=== PATIENT | female | born 1960 | race Caucasian/White ===

== ENCOUNTER → 2017-02-12 | Outpatient (CLI) | payer OTHER ==
--- NOTE | 2017-02-12 14:34 | XCELERA REPORT ---
[address] [address] Lower Extremity Arterial Evaluation Name: JORY DRUMMOND Age: 56 yrs Gender: Female : 1960 Patient Status: Outpatient Patient Location: Study Date: 02/12/2017 01:08 PM Procedure: A color flow and duplex scan of the lower extremity arteries was performed bilaterally with velocity and waveform anaylsis. Ankle brachial indicies performed. Reason For Study: L97.212 Ordering Physician: MACK KWON Performed By: Blaire Cm Measurements and Calculations Right Left [employer] SPECIALIST PSV 175.2 170.3 cm/sec Prox PFA PSV 99.9 74.8 cm/sec Prox SFA PSV 182.0 182.5 cm/sec Mid SFA PSV -110.6 -135.1 cm/sec Dist SFA PSV -93.7 -146.5 cm/sec Prox Pop A PSV 92.4 83.6 cm/sec Dist NICKI PSV 68.5 86.7 cm/sec Dist PREDATORY GAME HUNTER PSV 92.4 93.0 cm/sec Iam Pedis PSV -102.0 91.8 cm/sec Right Side Arterial Evaluation Normal velocity and triphasic waveforms noted from the Common Femoral artery to the Popliteal.. Biphasic with good waveform to the infrageniculate level. . 0-19% stenosis at the infrageniculate level. Ankle Brachial index is 1.00. Left Side Arterial Evaluation Normal velocity and triphasic waveforms noted from the Common Femoral artery to the Popliteal.. Biphasic with good waveform to the infrageniculate level. . 0-19% stenosis at the infrageniculate level. Ankle Brachial index is 1.21. Interpretation Summary Mild hemodynamically significant lesions in the bilateral lower extremities, on duplex imaging, at rest. : MACK KWON > Mack Kwon
--- NOTE | 2017-02-13 13:44 | XCELERA REPORT ---
[address] [address] Lower Extremity Venous Evaluation Name: JORY DRUMMOND Age: 56 yrs Gender: Female : 1960 Patient Status: Outpatient Patient Location: Study Date: 02/12/2017 01:52 PM Procedure: A bilateral duplex scan of the lower extremity veins was performed. The evaluation included responses to compression and other maneuvers with patient in the supine and standing positions to assess venous insufficiency. Reason For Study: L97.212 Ordering Physician: MACK KWON Performed By: Matt Silva Right Sided Venous Evaluation Deep venous system evaluatiion shows patent veins with no obstruction or significant reflux identified. Sapheno Femoral junction: 1.4 second reflux. Femoral vein reflux: no reflux. Greater Saphenous vein, Proximal thigh: reflux: no reflux. Greater Saphenous vein, Distal thigh: reflux: no reflux. Greater Saphenous vein, Proximal below knee: reflux: no reflux. Greater Saphenous vein, Mid below knee: reflux: 4.4 reflux. 6 mm diameter. Greater Saphenous vein, distal below knee: reflux: 4.5 reflux. 7 mm diameter. No significant Perforators identified. Left Sided Venous Evaluation Deep venous system evaluation shows patent veins with significant reflux identified. 1.4 second reflux in the CFV, no reflux in the Femoral vein. Sapheno Femoral junction: no reflux. Greater Saphenous vein, Proximal thigh: reflux: no reflux. Greater Saphenous vein, mid thigh: reflux: no reflux. Greater Saphenous vein, Distal thigh: reflux:no reflux. Greater Saphenous vein, Proximal below knee: reflux: none Greater Saphenous vein, Mid below knee: reflux: none. Greater Saphenous vein, Distal below knee: reflux: 4.2 seconds, 4 mm diameter. No significant Perforators identified. Interpretation Summary No duplex evidence of DVT or obstruction in the bilateral lower extremities. Limited refllux as noted. : MACK KWON > Mack Kwon
== END ==
LOC: SP 11:49
PROVIDERS: ATTEND Surgery
DX: L97.212 Non-pressure chronic ulcer of right calf with fat layer exposed (principal)
CPT/HCPCS: 93925; 93970

== ENCOUNTER 2017-09-18 21:41 | Emergency (ER) | payer OTHER ==
[2017-09-18] MEDS ORDERED: ATROPINE SULFATE INJ 1 MG/1 ML VIAL IV ONE ×2 (21:58→23:18)
[2017-09-18] MEDS ORDERED: CALCIUM GLUCONATE 1000 MG/10 ML INJ IV ONE ×2 (22:01→23:00)
[2017-09-18] MEDS ORDERED: DEXTROSE 50%-WATER 25 GM/50 ML DISP.SYRIN IV ONE (22:02)
[2017-09-18] MEDS ORDERED: INSULIN REG, HUMAN 100 UNIT/ML 3 ML VIAL (PYX) IV ONE (22:02)
--- NOTE | 2017-09-18 22:37 | ER Document Report ---
ED General - General Mode of Arrival: Medic Information source: Patient, Relative TRAVEL OUTSIDE OF THE [place] IN LAST 30 DAYS: No - HPI Patient complains to provider of: Weakness Onset: Other - few days ago Associated symptoms: Other - see notes above <ENRRIQUE SPARKS - Last Filed: 09/19/17 02:27> <MYLENE BARBA - Last Filed: 09/19/17 04:19> - General Chief Complaint: General Weakness Stated Complaint: WEAKNESS Time Seen by Provider: 09/18/17 21:58 Notes: 57-year-old female with history of hyperlipidemia, COPD, and diabetes presents to the ED via EMS complaining of is worsening weakness over the past several days. Family reports that the patient has a history of an elevated potassium with unknown value. She is family saw that the patient was getting worse this evening and decided to come in. Patient denies any chest pain. EMS reports the patient was bradycardic and hypotensive. Gastroenterology Teacher: Dr. Smith (Edwards) Pneumologist: Dr. Barr (ENRRIQUE SPARKS) - Related Data Allergies/Adverse Reactions: chlorzoxazone [From Parafon Forte] Allergy (Verified 08/04/12 13:33) medroxyprogesterone acetate [From Provera] Allergy (Verified 08/04/12 13:33) Past Medical History - General Information source: Patient, Emergency Med Personnel - Social History Smoking Status: Unknown if Ever Smoked Family History: Reviewed & Not Pertinent - Past Medical History Cardiac Medical History: Reports: Hx Hypercholesterolemia Pulmonary Medical History: Reports: Hx COPD - ON 2 LITER CONTINUEOUS OXYGEN Endocrine Medical History: Reports: Hx Diabetes Mellitus Type 2, Hx Hypothyroidism <ENRRIQUE SPARKS - Last Filed: 09/19/17 02:27> Review of Systems - Review of Systems Constitutional: See HPI, Weakness EENT: No symptoms reported Cardiovascular: No symptoms reported. denies: Chest pain Respiratory: No symptoms reported Gastrointestinal: No symptoms reported Genitourinary: No symptoms reported Female Genitourinary: No symptoms reported Musculoskeletal: No symptoms reported Skin: No symptoms reported Hematologic/Lymphatic: No symptoms reported Neurological/Psychological: No symptoms reported -: Yes All other systems reviewed and negative <ENRRIQUE SPARKS - Last Filed: 09/19/17 02:27> Physical Exam - Vital signs Interpretation: Hypotensive, Bradycardic, Hypoxic, Tachypneic - General General appearance: Alert, Other - confused In distress: Severe - HEENT Head: Normocephalic, Atraumatic Eyes: Normal Extraocular movements intact: Yes Pupils: PERRL - Respiratory Respiratory status: Tachypnea Breath sounds: Decreased air movement - with crackles throughout - Cardiovascular Rhythm: Regular, Bradycardia Heart sounds: Normal auscultation - Abdominal Inspection: Obese. No: Normal Distension: No distension Tenderness: Nontender - Extremities General upper extremity: Normal inspection, Normal ROM General lower extremity: Other - Open wounds to the bilateral lower extremities.. No: Normal inspection - Neurological Neuro grossly intact: Yes Cognition: Confused - Skin Skin Temperature: Warm Skin Moisture: Dry Skin irregularity: other - See extremity exam above. <ENRRIQUE SPARKS - Last Filed: 09/19/17 02:27> - Vital signs Vitals: Resp 11 L 09/18/17 21:56 Course - Laboratory Result Diagrams: 09/18/17 22:20 09/18/17 23:20 - Consults [facility] Time consulted: 22:35 <ENRRIQUE SPARKS - Last Filed: 09/19/17 02:27> - Laboratory Result Diagrams: 09/18/17 22:20 09/18/17 23:20 - Diagnostic Test Radiology reviewed: Reports reviewed <MYLENE BARBA - Last Filed: 09/19/17 04:19> - Re-evaluation Re-evalutation: 09/18/17 23:22 Patient was reevaluated and informed the family about pending transfer to [facility]. (ENRRIQUE SPARKS) Patient is a 57-year-old female who presents with weakness, bradycardia, and hypotension. EKG showing heart block. Patient apparently has been told to see nephrology. According to her , she has had high potassium. Patient's presentation was initially concerning for severe hyperkalemia. Patient was given 2 g of calcium gluconate, insulin, D50. Blood hemolyzed twice before seeing that potassium was 7.2 with a BUN of 169 and creatinine of 11.75 which I believe is acute renal insufficiency for this patient as she has never had dialysis in the past. Patient was initially in fulminant pulmonary edema. This is managed with BiPAP. Patient could not be given nitro as her blood pressure was too low. Patient was discussed with Talita Laboy and will be transferred by air for emergent dialysis, fluid overload, and severe hyperkalemia. Patient is in fair condition, improved but still critical. Transfer warranted by lack of services here tonight, particularly emergent dialysis. Family is in agreement with this plan. (MYLENE BARBA) - Vital Signs Vital signs: Temp Pulse Resp BP Pulse Ox 97.2 F 48 L 15 98/53 L 97 09/19/17 00:32 09/19/17 00:32 09/19/17 00:32 09/19/17 00:32 09/19/17 00:32 - Laboratory Laboratory results interpreted by me: 09/18/17 09/18/17 09/18/17 22:07 22:20 23:20 WBC 15.4 H RBC 3.67 L Hgb 10.4 L Hct 33.0 L MCHC 31.5 L RDW 16.0 H Seg Neutrophils % 93.5 H Lymphocytes % 5.1 L Monocytes % 0.8 L Absolute Neutrophils 14.4 H Sodium 128.7 L Potassium 7.2 H* Carbon Dioxide 9 L* Anion Gap 22 H BUN 169 H Creatinine 11.75 H Est GFR ( Amer) 4 L Est GFR (Non-Af Amer) 3 L Glucose 164 H POC Glucose 149 H Calcium 10.7 H Direct Bilirubin 0.8 H AST 90 H ALT 69 H Creatine Kinase 274 H CK-MB (CK-2) 09/18/17 09/19/17 23:20 00:11 WBC RBC Hgb Hct MCHC RDW Seg Neutrophils % Lymphocytes % Monocytes % Absolute Neutrophils Sodium Potassium Carbon Dioxide Anion Gap BUN Creatinine Est GFR ( Amer) Est GFR (Non-Af Amer) Glucose POC Glucose 140 H Calcium Direct Bilirubin AST ALT Creatine Kinase CK-MB (CK-2) 5.48 H - Consults [facility] Reason for consultation: 09/19/17 22:[address] Moe at [facility] who agrees to admit the patient under his care. (ENRRIQUE SPARKS) Critical Care Note - Critical Care Note Total time excluding time spent on procedures (mins): 180 - Evaluation and management of respiratory distress, bradycardia, hypotension, multiple re- evaluations, management of hyperkalemia, coordination of transfer, multiple re- evaluations, discussion with family and patient <MYLENE BARBA - Last Filed: 09/19/17 04:19> Discharge <ENRRIQUE SPARKS - Last Filed: 09/19/17 02:27> <MYLENE BARBA - Last Filed: 09/19/17 04:19> - Discharge Clinical Impression: Acute hyperkalemia, Bradycardia, Respiratory distress Hypotension Qualifiers: Hypotension type: unspecified hypotension type Qualified Code(s): I95.9 - Hypotension, unspecified Acute renal failure Qualifiers: Acute renal failure type: unspecified Qualified Code(s): N17.9 - Acute kidney failure, unspecified Pulmonary edema Qualifiers: Chronicity: acute Qualified Code(s): J81.0 - Acute pulmonary edema Condition: Fair Disposition: [facility] Scribe Attestation: 09/19/17 04:18 I personally performed the services described in the documentation, reviewed and edited the documentation which was dictated to the scribe in my presence, and it accurately records my words and actions. (MYLENE BARBA) Scribe Documentation - Scribe Written by Lisaibe:: Damari Goyal, 09/18/2017 2314 acting as scribe for :: Apryl <ENRRIQUE SPARKS - Last Filed: 09/19/17 02:27>
[2017-09-18 22:41] LABS: ABSOLUTE BASOPHILS # (AUTO) 0.1 10^3/uL (0.0-0.2); ABSOLUTE LYMPHOCYTES (AUTO) 0.8 10^3/uL (0.5-4.7); ABSOLUTE MONOCYTES (AUTO) 0.1 10^3/uL (0.1-1.4); ABSOLUTE NEUT (AUTO) 14.4 10^3/uL (1.7-8.2); BASOPHILS % (AUTO) 0.4 % (0-2); EOSINOPHILS % (AUTO) 0.2 % (0-6); HEMOGLOBIN 10.4 g/dL (12.0-15.5); LYMPHOCYTES % (AUTO) 5.1 % (13-45); MEAN CORPUSCULAR HEMOGLOBIN 28.3 pg (27.0-33.4); MEAN CORPUSCULAR HGB CONC 31.5 g/dL (32.0-36.0); MEAN CORPUSCULAR VOLUME 90 fl (80-97); MONOCYTES % (AUTO) 0.8 % (3-13); RED BLOOD COUNT 3.67 10^6/uL (3.72-5.28); SEGMENTED NEUTROPHILS % (AUTO) 93.5 % (42-78); TOTAL CELLS COUNTED % (AUTO) 100 %; WHITE BLOOD COUNT 15.4 10^3/uL (4.0-10.5)
[2017-09-18 22:55] LABS: PLATELET COUNT 423 10^3/uL (150-450)
[2017-09-18] MEDS ORDERED: DOPAMINE HCL/DEXTROSE 5%-WATER 800 MG/250 ML RTUINJ IV PRN (23:26)
--- NOTE | 2017-09-18 23:38 | RADIOLOGY REPORT (SQ) ---
EXAM DESCRIPTION: CHEST SINGLE VIEW COMPLETED DATE/TIME: 09/18/2017 10:51 pm REASON FOR STUDY: fluid overload COMPARISON: Chest x-ray 08/04/2012. EXAM PARAMETERS: NUMBER OF VIEWS: One view. TECHNIQUE: Single frontal radiographic view of the chest acquired. RADIATION DOSE: NA LIMITATIONS: None. FINDINGS: LUNGS AND PLEURA: No consolidation, pneumothorax or pleural effusion. MEDIASTINUM AND HILAR STRUCTURES: No obvious masses. There is prominence of the main pulmonary arter y. HEART AND VASCULAR STRUCTURES: The heart is enlarged. There is no overt vascular congestion. BONES: Degenerative changes in the spine. HARDWARE: A pacemaker pad is seen over the right upper chest. IMPRESSION: Cardiomegaly. Prominent main pulmonary artery, may be seen with pulmonary arterial hype rtension. TECHNICAL DOCUMENTATION: JOB ID: [id number] 2010 [employer]- All Rights Reserved
[2017-09-18 23:49] LABS: ALANINE AMINOTRANSFERASE 69 U/L (9-52); ALBUMIN 3.7 g/dL (3.5-5.0); ALKALINE PHOSPHATASE 52 U/L (38-126); ASPARTATE AMINO TRANSFERASE 90 U/L (14-36); BILIRUBIN,DIRECT 0.8 mg/dL (0.0-0.4); BILIRUBIN,TOTAL 0.8 mg/dL (0.2-1.3); CALCIUM 10.7 mg/dL (8.4-10.2); CHLORIDE 98 mmol/L (98-107); CREATINE KINASE 274 U/L (30-135); GLUCOSE 164 mg/dL (75-110); SODIUM 128.7 mmol/L (137-145); TOTAL PROTEIN 7.4 g/dL (6.3-8.2)
[2017-09-18 23:56] LABS: ANION GAP 22 (5-19); BLOOD UREA NITROGEN 169 mg/dL (7-20)
[2017-09-18 23:58] LABS: CARBON DIOXIDE 9 mmol/L (22-30); POTASSIUM 7.2 mmol/L (3.6-5.0)
[2017-09-19] LABS: CREATINE KINASE MB 5.48 ng/mL (<4.55); TROPONIN I 0.021 ng/mL
[2017-09-19] MEDS ORDERED: SODIUM BICARBONATE 4.2% INJ (2.4 MEQ/5 ML) VIAL INJ ONE
[2017-09-19] MEDS ORDERED: DEXTROSE 5%-WATER 1000 ML 1,000 ML with SODIUM BICARBONATE 150 MEQ IV PRN ×2
[2017-09-19] MEDS ORDERED: CALCIUM GLUCONATE 1000 MG/10 ML INJ IV ONE ×2 (00:03→00:06)
[2017-09-19] MEDS ORDERED: ALBUTEROL SULFATE HFA (90 MCG/PUFF) 200 PUFF/8.5 GM MDI IH ONE (00:03)
[2017-09-19] MEDS ORDERED: SODIUM BICARBONATE 8.4% INJ 50 MEQ/50 ML DISP.SYRIN ONE (00:06)
[2017-09-19] MEDS ORDERED: ALBUTEROL SULFATE 0.083% NEB 2.5 MG/3 ML AMPUL NEB ONE ×2 (00:06→00:15)
[2017-09-19] MEDS ORDERED: SODIUM POLYSTYRENE SULFONATE 15 GM/60 ML ONE (00:06)
[2017-09-19 01:05] VITALS: BP 98/53
--- NOTE | 2017-09-19 08:08 | EKG REPORT ---
SEVERITY:- ABNORMAL ECG - SINUS BRADYCARDIA THEN JUNCTIONAL ESCAPE RHYTHM NONSPECIFIC IVCD WITH LAD : Confirmed by: Adelso Boucher MD 19-Sep-2017 08:07:41
== END 2017-09-19 00:50 | disposition short-term general hospital (02) ==
LOC: ER 21:41
DX: N17.9 Acute kidney failure, unspecified (principal); J81.0 Acute pulmonary edema; I95.9 Hypotension, unspecified; E87.5 Hyperkalemia; E87.70 Fluid overload, unspecified; R00.1 Bradycardia, unspecified; I45.9 Conduction disorder, unspecified; R53.1 Weakness; E11.9 Type 2 diabetes mellitus without complications; J44.9 Chronic obstructive pulmonary disease, unspecified; R09.02 Hypoxemia; S81.802A Unspecified open wound, left lower leg, initial encounter; S81.801A Unspecified open wound, right lower leg, initial encounter; X58.XXXA Exposure to other specified factors, initial encounter; Z88.8 Allergy status to other drugs, medicaments and biological substances
CPT/HCPCS: 93005; 96376; 94640; 99291; 99292; 96375; 96365; 36415; 82553; 82962; 82550; 85025; 80053; 84484; 71045; 93010; 94660 ×2; J0461; J0610 ×2; J3490; J1265; J1815

== ENCOUNTER → 2018-09-15 | Outpatient (CLI) | payer OTHER ==
--- NOTE | 2018-09-15 13:29 | WOMENS IMAGING REPORT ---
EXAM DESCRIPTION: BILAT SCREENING MAMMO W/CAD COMPLETED DATE/TIME: 09/15/2018 11:10 am REASON FOR STUDY: V76.12, Z12.31 Z12.31 ENCNTR SCREEN MAMMOGRAM FOR MALIGNANT NEOPLASM OF JUANA COMPARISON: 04/12/2016 TECHNIQUE: Standard craniocaudal and mediolateral oblique views of each breast recorded using [employer] acquisition. LIMITATIONS: None. FINDINGS: No masses, calcifications or architectural distortion. No areas of suspicion. Read with the assistance of CAD. .[facility] - R2 [employer] Version 1.3 .[facility] - R2 [employer] Version 1.3 .[facility] - R2 C[employer] Version 2.4 .[facility] [place] R2 Cenova Version 2.4 .[facility] - R2 [employer] Version 9.2 IMPRESSION: NORMAL MAMMOGRAM. BIRADS 1. BREAST DENSITY: b. There are scattered areas of fibroglandular density. BIRAD: 1 NEGATIVE RECOMMENDATION: ROUTINE SCREENING COMMENT: The patient has been notified of the results by letter per SA requirements. Additional no tification policies are in place for contacting patient with suspicious or incomplete findings. Quality ID #[id number]: The [employer] recommends an annual screening mammogram for women aged 40 years or over. This facility utilizes a reminder system to ensure that all patients receive reminder letters, and/or direct phone calls for appointments. This includes reminders for routine scr eening mammograms, diagnostic mammograms, or other Breast Imaging Interventions when appropriate. Th is patient will be placed in the appropriate reminder system. The [employer] (A[employer]) has developed recommendations for screening MRI of the breast s in certain patient populations, to be used in conjunction with mammography. Breast MRI surveillanc e may be appropriate for women with more than 20% lifetime risk of developing breast cancer as deter mined by genetic testing, significant family history of the disease, or history of mantle radiation f or Hodgkins Disease. ACR Practice Guidelines 2008. TECHNICAL DOCUMENTATION: FINDING NUMBER: (1) ASSESSMENT: (1) JOB ID: [id number] [employer]- All Rights Reserved Reading location - IP/workstation name: [facility]
== END ==
LOC: WI 10:28
PROVIDERS: ATTEND Family Medicine
DX: Z12.31 Encounter for screening mammogram for malignant neoplasm of breast (principal)
CPT/HCPCS: 77067